=== PATIENT | female | born 1960 | race Caucasian/White ===

== ENCOUNTER 2016-03-28 09:48 | Emergency (ER) | payer BC ==
[2016-03-28 10:23] VITALS: BP 98/65
--- NOTE | 2016-03-28 11:10 | RAD ---
INDICATION: Right great toe injury. TECHNIQUE: 3 views of the right great toe were obtained. FINDINGS: There is diffuse soft tissue swelling present in the right great toe. The bones are in normal alignment. No fracture is seen. There is mild osteoarthritic change in the first metatarsal-phalangeal joint. IMPRESSION: SOFT TISSUE SWELLING, NO FRACTURE IS SEEN.
--- NOTE | 2016-03-28 13:05 | UC ---
Maxi Alva Matthew, scribed for Marylu Pedraza DO on 03/28/16 at 1104 . Lower Extremity/Ankle HPI - HPI Summary HPI Summary: A 55 y/o female presents to [facility] with right great toe pain since yesterday at 17 :00. The pain is rated 5/10 in severity, described as throbbing, and rated 8/10 in severity with ambulation. The patient states that she dropped stained glass onto her foot. The patient immediately had pain, so she iced and elevated her foot with minimal relief. Associated symptoms include swelling, ecchymosis, and nausea. The patient denies fever, chills, chest pain, SOB, diaphoresis, and vomiting. The patient has difficulty ambulating from the pain. LNMP ~5 years ago. - History of Current Complaint Chief Complaint: UCLowerExtremity Stated Complaint: FOOT INJURY Hx Obtained From: Patient Hx Last Menstrual Period: none ?: No Onset/Duration: Sudden Onset, Lasting Days - since yesterday at 17:00, Still Present Severity Initially: Moderate Severity Currently: Moderate Pain Intensity: 5 Pain Scale Used: 0-10 Numeric Aggravating Factor(s): Ambulation Alleviating Factor(s): Nothing - Allergies/Home Medications Allergies/Adverse Reactions: Allergies Allergy/AdvReac Type Severity Reaction Status Date / Time ALL MELONS Allergy THROAT Uncoded 10/20/14 09:56 ANDREW, PMH/Surg Hx/FS Hx/Imm Hx Endocrine History Of: Denies: Diabetes, Thyroid Disease Cardiovascular History Of: Denies: Cardiac Disorders, Hypertension Respiratory History Of: Reports: Asthma, Bronchitis - SEVERAL TIMES Denies: COPD GI/ History Of: Reports: Ulcer - in the past Psychological History Of: Reports: Depression - ON MEDS Cancer History Of: Denies: Breast Cancer - Surgical History Surgical History: Yes Surgery Procedure, Year, and Place: bilateral carpal tunnel surgery,. trigger finger - Family History Known Family History: Positive: Cardiac Disease, Diabetes, Respiratory Disease - asthma Negative: Hypertension - Social History Occupation: Employed Full-time Alcohol Use: Daily Alcohol Amount: wine with dinner/ gin and tonic Substance Use Type: None Smoking Status (MU): Never Smoked Tobacco Review of Systems Constitutional: Negative Skin: Bruising, Other - swelling Eyes: Negative ENT: Negative Respiratory: Negative Cardiovascular: Negative Gastrointestinal: Other - nausea Genitourinary: Negative Motor: Negative Neurovascular: Negative Musculoskeletal: Negative Neurological: Negative Psychological: Negative All Other Systems Reviewed And Are Negative: Yes Physical Exam Triage Information Reviewed: Yes Appearance: Well-Appearing, No Pain Distress, Well-Nourished Vital Signs: Initial Vital Signs Temp 98.1 F 03/28/16 10:18 Pulse 65 03/28/16 10:18 Resp 20 03/28/16 10:18 BP 98/65 03/28/16 10:18 Pulse Ox 99 03/28/16 10:18 Vital Signs Reviewed: Yes Eyes: Positive: Conjunctiva Clear. Negative: Discharge ENT: Positive: Hearing grossly normal. Negative: Muffled/hoarse voice Neck: Positive: Supple, Nontender Respiratory: Positive: Lungs clear, Normal breath sounds, No respiratory distress, No accessory muscle use Cardiovascular: Positive: RRR, No Murmur Musculoskeletal: Positive: Other: - Ecchymosis and swelling of the distal metatarsal and proximal and distal phalanx of the right greater toe Neurological: Positive: Alert, Muscle Tone Normal Psychological Exam: Normal Psychological: Positive: Age Appropriate Behavior Skin Exam: Normal Skin: Positive: Other - warm, dry, normal color Diagnostics - Radiology Right Toe XR Xray Interpretation: No Acute Changes - IMPRESSION: SOFT TISSUE SWELLING, NO FRACTURE IS SEEN. Radiology Interpretation Completed By: Radiologist Lower Extremity Course/Dx - Differential Dx/Diagnosis Differential Diagnosis/HQI/PQRI: Contusion, Fracture (Closed), Sprain, Strain Provider Diagnoses: toe contusion Discharge - Discharge Plan Condition: Stable Disposition: HOME Patient Education Materials: Foot Contusion (ED) Referrals: Olya Plunkett MD [Primary Care Provider] - (FOLLOW UP IN 5-7 DAYS IF NOT IMPROVING) The documentation as recorded by the Maxi gutierrez Matthew accurately reflects the service I personally performed and the decisions made by , Marylu Pedraza DO.
== END 2016-03-28 11:49 | disposition home or self-care (01) ==
LOC: UCEAST 09:48
DX: S90.111A Contusion of right great toe without damage to nail, initial encounter (principal); W22.8XXA Striking against or struck by other objects, initial encounter; Y93.9 Activity, unspecified
CPT/HCPCS: 99212; G0463

== ENCOUNTER 2016-04-27 10:14 | Emergency (ER) | payer BC ==
[2016-04-27 10:47] VITALS: BP 127/64
--- NOTE | 2016-04-27 11:23 | UC ---
Skin Complaint HPI - HPI Summary HPI Summary: worsening itchy rash under both underarms after using an "all natural body wash " itching is the worse - History of Current Complaint Chief Complaint: UCRash Time Seen by Provider: 04/27/16 11:16 Stated Complaint: RASH COMPLAINT Hx Obtained From: Patient Hx Last Menstrual Period: none ?: No Onset/Duration: Sudden Onset, Lasting Weeks - 2, Still Present Skin Exposure Onset/Duration: Weeks Ago - 2 Timing: Constant Onset Severity: Moderate Current Severity: Moderate Location: Discrete - scatted red itching rash in both axilla Aggravating: Nothing Alleviating: Other - tried hydrocortisone and xyzal with our relief Associated Signs & Symptoms: Positive: Rash Related History: Possible Reaction to: Environmental Exposure - a different body wash - Allergy/Home Medications Allergies/Adverse Reactions: Allergies Allergy/AdvReac Type Severity Reaction Status Date / Time ALL MELONS Allergy THROAT Uncoded 04/27/16 10:48 SWELLS, Review of Systems Constitutional: Negative Skin: Rash - under both arms Eyes: Negative ENT: Negative Respiratory: Negative Cardiovascular: Negative Gastrointestinal: Negative Genitourinary: Negative Motor: Negative Neurovascular: Negative Musculoskeletal: Negative Neurological: Negative Psychological: Negative All Other Systems Reviewed And Are Negative: Yes PMH/Surg Hx/FS Hx/Imm Hx Previously Healthy: No Endocrine History Of: Denies: Diabetes, Thyroid Disease Cardiovascular History Of: Denies: Cardiac Disorders, Hypertension Respiratory History Of: Reports: Asthma, Bronchitis - SEVERAL TIMES Denies: COPD GI/ History Of: Reports: Ulcer - in the past Psychological History Of: Reports: Depression - ON MEDS Cancer History Of: Denies: Breast Cancer - Surgical History Surgical History: Yes Surgery Procedure, Year, and Place: bilateral carpal tunnel surgery,. 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 Lives: With Family Alcohol Use: Daily Alcohol Amount: wine with dinner/ gin and tonic Substance Use Type: None Smoking Status (MU): Never Smoked Tobacco Physical Exam Triage Information Reviewed: Yes Appearance: Well-Appearing, No Pain Distress, Well-Nourished Vital Signs: Initial Vital Signs Temp 98.9 F 04/27/16 10:42 Pulse 68 04/27/16 10:42 Resp 16 04/27/16 10:42 BP 127/64 04/27/16 10:42 Pulse Ox 99 04/27/16 10:42 Vital Signs Reviewed: Yes Eye Exam: Normal Eyes: Positive: Conjunctiva Clear ENT Exam: Normal ENT: Positive: Normal ENT inspection, Hearing grossly normal Dental Exam: Normal Neck exam: Normal Neck: Positive: Supple, Nontender, No Lymphadenopathy Respiratory Exam: Normal Respiratory: Positive: Chest non-tender, Lungs clear, Normal breath sounds, No respiratory distress, No accessory muscle use Cardiovascular Exam: Normal Cardiovascular: Positive: RRR, No Murmur, Pulses Normal, Brisk Capillary Refill Musculoskeletal Exam: Normal Musculoskeletal: Positive: Strength Intact, ROM Intact, No Edema Neurological Exam: Normal Neurological: Positive: Alert Psychological Exam: Normal Skin Exam: Normal Skin: Positive: rashes Course/Dx - Course Course Of Treatment: prednisone, xyzal, antifungal cream follow with pcp re- check prn - Differential Diagnoses - Skin Complaint Differential Diagnoses: Cellulitis, Local Allergic Reaction, Tinea, Urticaria, Other - Diagnoses Provider Diagnoses: Localized reaction to skin product bilateral axilla Discharge - Discharge Plan Condition: Stable Disposition: HOME Prescriptions: Clotrimazole/Betamethasone* [Lotrisone Cream*] 1 applic TOPICAL BID #45 gm LevoCETirizine TAB (NF) [Xyzal TAB (NF)] 5 mg PO DAILY #30 tab predniSONE TAB* [Deltasone TAB*] 10 mg PO DAILY #18 tab Patient Education Materials: Urticaria (ED) Referrals: Olya Plunkett MD [Primary Care Provider] - If Needed
== END 2016-04-27 11:35 | disposition home or self-care (01) ==
LOC: UCEAST 10:14
DX: R21 Rash and other nonspecific skin eruption (principal)
CPT/HCPCS: 99212; G0463

== ENCOUNTER 2017-07-27 16:52 | Emergency (ER) | payer BC ==
[2017-07-27 17:18] VITALS: BP 130/76
--- NOTE | 2017-07-27 17:46 | RAD ---
INDICATION: Productive cough, chest tightness and congestion. History of asthma. COMPARISON: June 15, 2010 TECHNIQUE: Dual energy PA and routine lateral views of the chest were obtained. REPORT: Mildly elevated lung volumes. No focal pulmonary lesion, compelling alveolar consolidation, pleural effusion, pneumothorax. The heart, pulmonary vasculature, and mediastinal contours are unremarkable. Mild thoracic degenerative spondylosis. IMPRESSION: Elevated lung volumes suggest obstructive lung disease corresponding with history of asthma. No evidence for pneumonia.
--- NOTE | 2017-07-27 18:06 | UC ---
Bon Alva Rebecca, scribed for Curt Hebert MD on 07/27/17 at 1726 . Respiratory Complaint HPI - HPI Summary HPI Summary: Pt is a 56 y/o F who presents to [facility] c/o productive cough. Pt became ill with a URI about 4 weeks ago which had begun improving, then 1 week ago, symptoms began worsening again. The cough is producing green, thick phlegm. Additionally c/o episodes of low-grade fever with diaphoresis and mild sore throat. Has been treated symptoms with NyQuil at night. - History of Current Complaint Chief Complaint: UCRespiratory Stated Complaint: COUGH, AND CHEST CONGESTION Time Seen by Provider: 07/27/17 17:24 Hx Obtained From: Patient Hx Last Menstrual Period: none Onset/Duration: Still Present, Worse Since - 1 week Severity Currently: Moderate Pain Intensity: 5 Pain Scale Used: 0-10 Numeric Character: Cough: Productive Associated Signs And Symptoms: Positive: Fever - Allergies/Home Medications Allergies/Adverse Reactions: Allergies Allergy/AdvReac Type Severity Reaction Status Date / Time ALL MELONS Allergy THROAT Uncoded 07/27/17 17:18 ANDREW, PMH/Surg Hx/FS Hx/Imm Hx Respiratory History: Asthma GI/ History: Ulcer, Other Other GI/ History: IBS Psychological History: Depression - Surgical History Surgical History: Yes Surgery Procedure, Year, and Place: bilateral carpal tunnel surgery,. trigger finger. shoulder skin leasions/ cancer removed - Family History Known Family History: Positive: Cardiac Disease, Diabetes, Respiratory Disease - asthma Negative: Hypertension - Social History Alcohol Use: Weekly Alcohol Amount: wine with dinner/ gin and tonic Substance Use Type: None Smoking Status (MU): Never Smoked Tobacco Review of Systems Constitutional: Fever, Other - Diaphoresis Skin: Negative Eyes: Negative ENT: Sore Throat Respiratory: Cough Cardiovascular: Negative Gastrointestinal: Negative Genitourinary: Negative Motor: Negative Neurovascular: Negative Musculoskeletal: Negative Neurological: Negative Psychological: Negative All Other Systems Reviewed And Are Negative: Yes Physical Exam - Summary Physical Exam Summary: VITAL SIGNS: Reviewed. GENERAL: ~Patient is a well developed and nourished female who is lying comfortable in the stretcher. ~Patient is not in any acute respiratory distress. HEAD AND FACE: Normocephalic EYES: PERRLA, EOMI x 2. EARS: Hearing grossly intact. MOUTH: Oropharynx within normal limits. NECK: Supple, trachea is midline, no adenopathy, no JVD, no carotid bruit. CHEST: Symmetric, no tenderness at palpation LUNGS: Clear to auscultation bilaterally. No wheezing or crackles. CVS: Regular rate and rhythm, S1 and S2 present, no murmurs or gallops appreciated. ABDOMEN: Soft, non-tender. Bowel sounds are normal. No abdominal abnormal pulsations. EXTREMITIES: Full ROM in all major joints, no edema, no cyanosis or clubbing. NEURO: Alert and oriented x 3. No acute neurological deficits. Speech is normal and follows commands. SKIN: Dry and warm Triage Information Reviewed: Yes Vital Signs: Initial Vital Signs Temp 99.4 F 07/27/17 17:11 Pulse 64 07/27/17 17:11 Resp 18 07/27/17 17:11 BP 130/76 07/27/17 17:11 Pulse Ox 98 07/27/17 17:11 Vital Signs Reviewed: Yes Diagnostic Evaluation - Laboratory O2 Sat by Pulse Oximetry: 98 - Radiology Radiology Interpretation Completed By: Radiologist - Elevated lung volumes suggest obstructive lung disease corresponding with history of asthma. No evidence of pneumonia. physician reviewed radiology report. Re-Evaluation - Re-Evaluation First Eval Re-Evaluation Time: 17:51 Comment: Discussed CXR results. Respiratory Course/Dx - Course Course Of Treatment: Pt is a 56 y/o F who [facility] cough. Pt became ill with a URI about 4 weeks ago which had begun improving, then 1 week ago, symptoms began worsening again. The cough is producing green, thick phlegm. Additionally c/o episodes of low-grade fever with diaphoresis and mild sore throat. Has been treated symptoms with NyQuil at night. CXR reveals Elevated lung volumes suggest obstructive lung disease corresponding with history of asthma. No evidence of pneumonia. Seeing as the patient is having productive cough with yellow/greenish phlegm for more than 4 weeks with intermittent low-grade fevers, I believe she has bronchitis. She will be prescribed Azithromycin. She will be D/C to home with f/u with PCP. I discussed all the findings and test results with the patient. Patient was instructed to return to the urgent care or go to ER immediately if any of the symptoms return or worsens. Plan of care was discussed with the patient, and patient understands and agrees. All questions were answered to patient satisfaction. There were no further complaints or concerns. - Differential Dx/Diagnosis Provider Diagnoses: Bronchitis Discharge - Sign-Out/Discharge Documenting (check all that apply): Discharge/Admit/Transfer - Discharge - Discharge Plan Condition: Stable Disposition: HOME Prescriptions: Azithromyxin JAVI (NF) [Z-Javi (Zithromax) 250 mg tabs #6] 2 tab PO .TODAY, THEN 1 DAILY #6 tab Patient Education Materials: Acute Bronchitis (ED) Referrals: Olya Plunkett MD [Primary Care Provider] - Additional Instructions: RETURN TO URGENT CARE OR THE ED FOR ANY WORSENING OR NEW SYMPTOMS. The documentation as recorded by the Bon gutierrez Rebecca accurately reflects the service I personally performed and the decisions made by Anup marin Walter, MD.
== END 2017-07-27 18:00 | disposition home or self-care (01) ==
LOC: UCEAST 16:52
DX: J45.909 Unspecified asthma, uncomplicated (principal); K58.9 Irritable bowel syndrome, unspecified; F32.9 Major depressive disorder, single episode, unspecified
CPT/HCPCS: 71046; 99212; G0463

== ENCOUNTER 2018-05-08 07:26 | Day surgery (SDC) | payer BC ==
--- NOTE | 2018-04-26 19:52 | HP ---
PREOPERATIVE HISTORY AND PHYSICAL: DATE OF ADMISSION: 05/08/18 CHIEF COMPLAINT: Left wrist mass. HISTORY OF PRESENT ILLNESS: Betsy is a 57-year-old woman, who has a painful mass on the dorsal aspect of her left wrist. This has been present for a few years. It has become increasingly bothersome and she would like to have it removed. She rates her pain as 3/10. The mass has fluctuated in size over time , more recently has gone down a little bit. 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 It does not inhibit her ability to work. She is right-handed. She denies associated numbness or tingling. PAST MEDICAL HISTORY: Asthma, anxiety, anemia, reflux, irritable bowel syndrome , and skin cancer. PAST SURGICAL HISTORY: Carpal tunnel release, trigger thumb release, and skin cancer surgery. MEDICATIONS: 1. B complex. 2. Buspirone HCl 7.5 mg daily. 3. Celexa 40 mg daily. 4. Clobetasol propionate. 5. Fish oil plus D3. 6. Triamcinolone acetonide. ALLERGIES: To LATEX and ADHESIVES. FAMILY HISTORY: Rheumatoid arthritis, diabetes, heart disease, hypertension, stroke. SOCIAL HISTORY: She lives with her spouse. 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 She denies tobacco use. REVIEW OF SYSTEMS: Positive for sore throat, runny nose, blurry vision, night sweats, diarrhea, constipation, chronic back and neck pain, seasonal allergies, fatigue, weight loss, rash, depression, anxiety. Otherwise, negative for cephalic, cardiovascular, respiratory, gastrointestinal, genitourinary, other musculoskeletal, skin, neurologic, endocrine, and hematologic symptoms. PHYSICAL EXAMINATION GENERAL: She is a healthy-appearing, pleasant woman, in minimal distress at rest. VITAL SIGNS: Height is 61 inches, weight 135 pounds. Pulse 71, blood pressure 120/66. HEENT: Exam is unremarkable. Her eye movements are concentric. NECK: She has good range of motion of her neck without pain. No masses are palpated. LUNGS: Clear to auscultation. Good inspiratory effort. No wheezing. CARDIAC: Regular rate and rhythm without murmur. PERIPHERAL VASCULAR: She has palpable pulses and no peripheral edema. EXTREMITIES: She has a 2 cm diameter mass on the dorsal aspect of her left radiocarpal joint. It is tender to palpation. It limits her extension a little bit. She can make a fist. Neurovascular function is intact. Skin is intact. NEUROLOGICAL: She is alert and oriented without focal deficit. IMPRESSION: Left wrist mass. PLAN: Plan is for removal of left wrist mass. We will see her back in followup approximately 10 days postop. [id number]/[facility] #: [id number] MTDD
[~2018-05-08 07:26] MED LIST: Buffered Lidocaine 1% SYRIN* 1 ML/SYRINGE INTRADERM ONE; Dexamethasone IV* 4 MG/ML 1 ML (4 MG) IV SLOW PU ONE; Dexamethasone IV* 4 MG/ML 1 ML (4 MG) ONE; Famotidine IV* 10 MG/ML 2 ML (20 mg) IV ONE; Famotidine IV* 10 MG/ML 2 ML (20 mg) ONE; Lactated Ringers 1000 ML Bag* 1,000 ML IV SCH; Lidocaine 1% INJ* 10 MG/ML 30 ML SDV ONE
[2018-05-08] MEDS ORDERED: Ondansetron INJ* 2 MG/ML VIAL ONE (08:54)
[2018-05-08] MEDS ORDERED: Midazolam* 1 MG/ML 5 ML VIAL (5 MG) ONE (08:54)
[2018-05-08] MEDS ORDERED: fentaNYL* 50 MCG/ML 2 ML VIAL (100 MCG VIAL) ONE (08:54)
[2018-05-08] MEDS ORDERED: Propofol* 10 MG/ML 20 ML BTL ONE (08:54)
[2018-05-08] MEDS ORDERED: Ketorolac INJ* 30 MG/ML 1 ML VIAL ONE (08:54)
[2018-05-08] MEDS ORDERED: Naloxone* 0.4 MG/ML 1 ML VIAL IV PRN (09:12)
[2018-05-08 10:41] VITALS: BP 104/65
--- NOTE | 2018-05-08 11:24 | OP ---
DATE OF OPERATION: 05/08/18 [facility] DATE OF : 62 SURGEON: Dr. Pruitt. SPRINKLING TRUCK DRIVER: BEAR Thorpe ANESTHESIA: Local MAC. PRE-OP DIAGNOSIS: Left wrist mass. POST-OP DIAGNOSIS: Left fourth compartment extensor tenosynovitis with abrasion of the left middle finger extensor tendon. OPERATIVE PROCEDURE: Left wrist tenosynovectomy. ESTIMATED BLOOD LOSS: Zero. TOURNIQUET TIME: About 30 minutes. INDICATION FOR PROCEDURE: Betsy is a 57-year-old woman who has a painful mass on the dorsal aspect of her left wrist. Initially was improved with cortisone injection, but has recurred, and she presents now for removal of the left wrist mass. DESCRIPTION OF PROCEDURE: The patient was brought to the operating room, was given a sedation anesthetic and a local infiltration of 10 cc of 1% plain lidocaine overlying the left wrist mass. Skin of her left upper extremity was prepped and draped in the usual sterile fashion. The hand and forearm were exsanguinated and the tourniquet elevated to 250 mmHg. A longitudinal incision was made centered over the mass. We dissected through the subcutaneous tissue down to the fourth compartment extensor tendon. There was abundant tenosynovitis surrounding the tendons, especially the middle finger tendon, which had some infiltrating tenosynovitis and significant abrasion and near rupture of the tendon. The tenosynovitis was fully debrided off of all the extensor tendons and then even down into the fourth extensor compartment. This extensor retinaculum was incised for a small portion, but more proximal, the tendons appeared normal. After all of the tenosynovitis was debrided, a 4-0 nylon suture was used to repair the middle finger extensor tendon [id number] interrupted sutures. The wound was copiously irrigated with saline. A latex free [place] drain was placed and the skin edges were reapproximated with 4-0 nylon suture. The wound was dressed with Xeroform, 4x4, Webril, ABD, and an Raul wrap. The patient tolerated the procedure well and was brought to the recovery room in good condition. [id number]/[facility] #: [id number] [facility]
== END 2018-05-08 10:35 | disposition home or self-care (01) ==
LOC: OREAST 07:26
PROVIDERS: ATTEND Orthopaedic Surgery
DX: M65.832 Other synovitis and tenosynovitis, left forearm (principal); Z85.828 Personal history of other malignant neoplasm of skin; J45.909 Unspecified asthma, uncomplicated; K21.9 Gastro-esophageal reflux disease without esophagitis
CPT/HCPCS: 88304; J1100; J1885; J2250; J2405; J2704; J3010